=== PATIENT | female | born 1975 | race Caucasian/White ===

== ENCOUNTER 2017-03-12 09:00 | Day surgery (SDC) | payer MEDICAID ==
[2017-03-12 09:43] LABS: HCG,QUAL RESULT NEGATIVE (NEGATIVE)
[2017-03-12] MEDS ORDERED: SIMETHICONE 40 MG/0.6 ML ML ONE (09:44)
[2017-03-12] MEDS ORDERED: MEPERIDINE HCL/PF 100 MG/ML AMP ONE (09:45)
[2017-03-12] MEDS ORDERED: MIDAZOLAM HCL 5 MG/5 ML VIAL ONE (09:46)
[2017-03-12] MEDS: MIDAZOLAM HCL 5 MG/5 ML VIAL ONE ×4 (10:02→10:17)
[2017-03-12 12:14] VITALS: BP_SYST 121
== END 2017-03-12 11:15 | disposition home or self-care (01) ==
LOC: SDS 09:00 → SMU 09:00 → SDS 11:15
PROVIDERS: ATTEND Internal Medicine Gastroenterology
DX: K64.8 Other hemorrhoids (principal); R19.4 Change in bowel habit; Z98.890 Other specified postprocedural states
CPT/HCPCS: 45380; 84703; 88305; J2175; J2250